=== PATIENT | female | born 1975 | race Two or more races ===

== ENCOUNTER 2018-09-17 12:00 | Inpatient (IN) | payer OTHER ==
[~2018-09-17] VITALS: Ht 154.9 cm; Wt 72.6 kg
[2018-09-17 13:42] LABS: BASOPHILS % 1.4 % (0.0-2.0); EOSINOPHILS % 3.7 % (0.0-5.0); HEMATOCRIT. 44.3 % (36.0-48.0); HEMOGLOBIN. 14.9 g/dL (12.0-16.0); LYMPHOCYTES % 32.5 % (20.0-50.0); MEAN CORPUSCULAR HEMOGLOBIN 30.1 pg (28.0-32.0); MEAN CORPUSCULAR VOLUME 89.9 fL (81.0-99.0); MEAN PLATELET VOLUME 7.8 fl (7.4-10.4); MONOCYTES % 5.9 % (2.0-8.0); NEUTROPHILS % 56.5 % (40.0-76.0); PLATELET 183 x1000/uL (130-400); RED BLOOD CELL COUNT 4.93 mill/uL (4.2-5.4); RED CELL DISTRIBUTION WIDTH 13.4 % (11.6-14.6)
[2018-09-17 13:44] LABS: CHLORIDE 106 mEq/L (98-107)
[2018-09-17 13:50] LABS: T4 FREE 1.54 ng/dL (0.76-1.46)
[2018-09-17 18:30] VITALS: BP 130/64
[2018-09-17] MEDS ORDERED: CALC-900 PO (18:42)
[2018-09-17] MEDS ORDERED: LEVO137T2 PO (18:42)
[2018-09-17] MEDS ORDERED: CALC0.253 PO (18:42)
[2018-09-17 20:00] VITALS: BP 127/72
[2018-09-18] VITALS (7 sets, daily range): BP systolic 111–129; BP diastolic 53–75
[2018-09-18 00:10] LABS: CREATINE KINASE 53 IU/L (26-192)
[2018-09-18 06:49] LABS: BASOPHILS % 1.4 % (0.0-2.0); EOSINOPHILS % 4.6 % (0.0-5.0); HEMOGLOBIN. 14.1 g/dL (12.0-16.0); LYMPHOCYTES % 34.3 % (20.0-50.0); MEAN CORPUSCULAR HEMOGLOBIN 30.2 pg (28.0-32.0); MEAN CORPUSCULAR VOLUME 89.7 fL (81.0-99.0); NEUTROPHILS % 52.7 % (40.0-76.0); PLATELET 170 x1000/uL (130-400); RED BLOOD CELL COUNT 4.68 mill/uL (4.2-5.4); RED CELL DISTRIBUTION WIDTH 13.1 % (11.6-14.6)
[2018-09-18 06:53] LABS: CHLORIDE 107 mEq/L (98-107)
[2018-09-18 07:03] LABS: CREATINE KINASE 53 IU/L (26-192); PHOSPHORUS 4.1 mg/dL (2.5-4.9)
[2018-09-18] MEDS ORDERED: LEVOTHYROXINE SODIUM 175MCG TABLET PO SCH (07:40)
[2018-09-18] MEDS ORDERED: PNEUMOCOCCAL 23-VAL P-SAC VAC 0.5 ML IM ONE (08:00)
[2018-09-18] MEDS ORDERED: CALCITRIOL 0.25MCG CAPSULE PO SCH (09:00)
[2018-09-18] MEDS ORDERED: SUMA100T16 PO (11:02)
[2018-09-18] MEDS ORDERED: SUMATRIPTAN SUCCINATE 25MG TABLET PO PRN (13:00)
[2018-09-18 20:43] LABS: HCG SCREEN NEGATIVE
[2018-09-23 13:07] LABS: 25-HYDROXY VITAMIN D3 35 ng/mL (.)
== END 2018-09-18 20:50 | disposition short-term general hospital (02) | DRG 313 ==
LOC: ER 13:48 → 7WST 15:20 → EDBEDREQTM 15:23 → EDBEDREQ 15:23 → ENRESERV 16:55
PROVIDERS: ADMIT Internal Medicine Nephrology; ATTEND Internal Medicine Nephrology
DX: R07.89 Other chest pain (principal); E89.0 Postprocedural hypothyroidism; G43.909 Migraine, unspecified, not intractable, without status migrainosus; Z85.850 Personal history of malignant neoplasm of thyroid; Z79.899 Other long term (current) drug therapy
CPT/HCPCS: 36415; 71045; 76536; 80048; 82306; 82330; 82550; 83735; 83880; 84100; 84439; 84443; 84484; 84703; 90732; 93005; 99285